=== PATIENT | female | born 1955 ===

== ENCOUNTER 2022-12-30 15:32 | Outpatient (CLI) | payer MEDICARE, OTHER ==
--- NOTE | 2022-12-30 17:01 | XRAY Report ---
PROCEDURE: Foot 3 View LT INDICATIONS: [facility] TECHNIQUE: 3 views of the foot were acquired. COMPARISON: None. FINDINGS: Bones: No fractures or dislocations. No suspicious bony lesions. Soft tissues: No suspicious soft tissue calcifications or masses. IMPRESSION: No acute bony abnormality. Reviewed by: Ronal Villatoro on 12/30/2022 5:00 PM PDT Approved by: Ronal Villatoro on 12/30/2022 5:00 PM PDT Station ID: [id number]
== END 2022-12-30 23:59 | disposition home or self-care (01) ==
LOC: DI.S 15:32
PROVIDERS: ATTEND Emergency Medicine
DX: G57.62 Lesion of plantar nerve, left lower limb (principal)

== ENCOUNTER 2023-04-28 17:32 | Outpatient (CLI) | payer OTHER, MEDICARE | END 2023-04-28 17:33 | disposition critical access hospital (66) | LOC: EMS 17:32 | DX: M54.2 Cervicalgia (principal); M79.662 Pain in left lower leg; M79.661 Pain in right lower leg; V53.5XXA Driver of pick-up truck or van injured in collision with car, pick-up truck or van in traffic accident, initial encounter; Y92.413 State road as the place of occurrence of the external cause | CPT/HCPCS: A0425; A0429 ==

== ENCOUNTER 2023-04-28 17:55 | Emergency (ER) | payer OTHER, MEDICARE ==
[2023-04-28 18:16] VITALS: O2SAT 100
[2023-04-28] MEDS ORDERED: ACETAMINOPHEN 325 MG TABLET PO STA (18:54)
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
[2023-04-28 21:22] VITALS: BP 133/88
== END 2023-04-28 21:20 | disposition home or self-care (01) ==
LOC: EDUNIT# → ED 17:55
DX: S16.1XXA Strain of muscle, fascia and tendon at neck level, initial encounter (principal); S80.11XA Contusion of right lower leg, initial encounter; V89.2XXA Person injured in unspecified motor-vehicle accident, traffic, initial encounter; Y92.410 Unspecified street and highway as the place of occurrence of the external cause; I10 Essential (primary) hypertension
CPT/HCPCS: 72125; 72128; 73590; 99284; A9270